=== PATIENT | male | born 1965 | race Caucasian/White ===

== ENCOUNTER 2017-12-05 22:27 | Emergency (ER) | payer SELFPAY ==
[2017-12-05] MEDS ORDERED: Acetaminophen 325 MG Tab PO ONE (23:16)
[2017-12-05] MEDS ORDERED: Ibuprofen 800 MG Tab PO ONE (23:16)
--- NOTE | 2017-12-05 23:16 | EDM.PDOC ---
ED HPI GENERAL MEDICAL PROBLEM - General Chief Complaint: Genitourinary Problem Stated Complaint: groin pain Time Seen by Provider: 12/05/17 23:04 Source of Information: Reports: Patient, RN Notes Reviewed - History of Present Illness INITIAL COMMENTS - FREE TEXT/NARRATIVE: 52-year-old gentleman with onset of left scrotal pain and swelling that started this past morning. He is not aware of any particular type of injury. 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 No Voiding symptoms. No fever or chills. Onset was fairly gradual Treatments WORK STUDY STUDENT: Reports: Other (see below) Other Treatments WORK STUDY STUDENT: none Left Pain Score (Numeric/FACES): 6 - Related Data Allergies Allergy/AdvReac Type Severity Reaction Status Date / Time lisinopril Allergy Hives Verified 12/05/17 22:43 Home Meds: Home Meds Humalog Insulin 0 unit INJECT ASDIRECTED 12/05/17 [History] Insulin Glarg,Human.Rec.Analog [Lantus] 50 unit INJECT BID 12/05/17 [History] Loratadine [Claritin] 50 mg PO DAILY 12/05/17 [History] Methocarbamol [Robaxin-750] 500 mg PO BID 12/05/17 [History] Omeprazole Magnesium [Prilosec Otc] 20 mg PO DAILY 12/05/17 [History] atorvaSTATin [Lipitor] 40 mg PO BEDTIME 12/05/17 [History] metFORMIN [Glucophage XR] 1,000 mg PO DAILY 12/05/17 [History] Ciprofloxacin HCl [Cipro] 500 mg PO Q12HR #14 tablet 12/06/17 [Rx] Past Medical History Cardiovascular History: Reports: Hypertension Gastrointestinal History: Reports: GERD Musculoskeletal History: Reports: Other (See Below) Other Musculoskeletal History: right shoulder and right hip with pins and plates Social & Family History - Tobacco Use Smoking Status *Q: Current Every Day Smoker Years of Tobacco use: 15 Packs/Tins Daily: 0.5 - Caffeine Use Caffeine Use: Reports: Tea - Recreational Drug Use Recreational Drug Use: No ED ROS GENERAL - Review of Systems Review Of Systems: See Below Constitutional: Denies: Fever, Chills HEENT: Reports: No Symptoms Respiratory: Denies: Shortness of Breath, Pleuritic Chest Pain Cardiovascular: Denies: Chest Pain GI/Abdominal: Denies: Abdominal Pain, Nausea, Vomiting : Reports: No Symptoms Musculoskeletal: Reports: No Symptoms Skin: Reports: No Symptoms Neurological: Reports: No Symptoms ED EXAM, RENAL/ - Physical Exam Exam: See Below General Appearance: Alert, No Apparent Distress Throat/Mouth: Normal Inspection Head: Atraumatic. No: Facial Swelling Neck: Supple Respiratory/Chest: No Respiratory Distress, Lungs Clear Cardiovascular: Regular Rate, Rhythm (Male) Exam: Scrotal Swelling (Mild left-sided), Scrotum Tenderness (L) Neurological: Alert, Oriented, No Motor/Sensory Deficits Skin Exam: Warm, Dry, Normal Color Course - Vital Signs Last Recorded V/S: Last Vital Signs Temp 98.9 F 12/05/17 22:53 Pulse 70 12/05/17 22:53 Resp 20 12/05/17 22:53 BP 149/89 H 12/05/17 22:53 Pulse Ox 96 12/05/17 22:53 - Orders/Labs/Meds Orders: Active Orders 24 hr Category Date Time Status Scrotum and Contents [US] Stat Exams 12/05/17 23:16 Taken UA W/MICROSCOPIC [URIN] Stat Lab 12/05/17 23:24 Ordered Labs: Laboratory Tests 12/05/17 Range/Units 23:24 Urine Color Yellow (Yellow) Urine Appearance Clear (Clear) Urine pH 7.0 (5.0-8.0) Ur Specific [place] 1.025 (1.005-1.030) Urine Protein 1+ H (Negative) Urine Glucose (UA) Negative (Negative) Urine Ketones Negative (Negative) Urine Occult Blood Trace-intact H (Negative) Urine Nitrite Negative (Negative) Urine Bilirubin Negative (Negative) Urine Urobilinogen 1.0 (0.2-1.0) Ur Leukocyte Esterase Negative (Negative) Urine RBC 0-5 (0-5) /hpf Urine WBC 0-5 (0-5) /hpf Ur Epithelial Cells 0-5 (0-5) /hpf Urine Bacteria Few (FEW) /hpf Urine Mucus Few (FEW) /hpf Meds: Medications Discontinued Medications Generic Name Dose Route Start Last Admin Trade Name Freq PRN Reason Stop Dose Admin Acetaminophen 975 mg 12/05/17 23:16 12/05/17 23:27 Tylenol PO 12/05/17 23:17 975 mg NOW ONE Administration Ibuprofen 800 mg 12/05/17 23:16 12/05/17 23:27 Motrin PO 12/05/17 23:17 800 mg ONETIME ONE Administration Levofloxacin 500 mg 12/06/17 00:38 12/06/17 00:41 Levaquin PO 12/06/17 00:39 500 mg ONETIME ONE Administration - Re-Assessments/Exams Free Text/Narrative Re-Assessment/Exam: 12/06/17 01:43 Ultrasound does show findings for epididymitis, left sided. No torsion. See report for details. Departure - Departure Time of Disposition: 00:39 Disposition: Home, Self-Care 01 Condition: Fair Clinical Impression: Epididymitis - Discharge Information Prescriptions: Ciprofloxacin HCl [Cipro] 500 mg PO Q12HR #14 tablet Instructions: Epididymitis Referrals: PCP,None [Primary Care Provider] - Forms: ED Department Discharge Additional Instructions: You've been given Levaquin 500 mg orally while here in the ED this evening. Start Cipro antibiotic 500 mg twice daily take that for the next week as prescribed, he may take Tylenol 2-3 times daily as needed for discomfort. This should gradually resolve over the next 5-7 days. A couple of days off work will be helpful as well. Follow-up clinic if not much better within 5-7 days as expected. - My Orders Last 24 Hours: My Active Orders 12/05/17 23:16 Scrotum and Contents [US] Stat 12/05/17 23:24 UA W/MICROSCOPIC [URIN] Stat - Assessment/Plan Last 24 Hours: My Active Orders 12/05/17 23:16 Scrotum and Contents [US] Stat 12/05/17 23:24 UA W/MICROSCOPIC [URIN] Stat
[2017-12-06] MEDS ORDERED: Levofloxacin 250 MG Tab PO ONE (00:38)
--- NOTE | 2017-12-06 08:54 | US ---
Testicular ultrasound: Multiple real time imaging of the testicles was obtained. Small epididymal cyst is noted on the right side measuring 6 mm. Small bilateral hydroceles are seen. Testicles show no intratesticular abnormality. Both arterial and venous blood flow are seen within the testicles. Left epididymis is heterogeneous showing increased blood flow most likely due to epididymitis. Measurements: Right testicle: 5.1 x 2.7 x 3.9 cm Left testicle: 3.6 x 2.5 x 3.2 cm Impression: 1. Heterogeneous left epididymis showing increased vascularity compatible with epididymitis. 2. Other incidental findings as noted above. Diagnostic code #3 I agree with preliminary report from [facility], finalized at 12/06/17, 1:25 AM Central Time
== END 2017-12-06 00:53 | disposition home or self-care (01) ==
LOC: JD.ED 22:27
DX: N45.1 Epididymitis (principal); F17.210 Nicotine dependence, cigarettes, uncomplicated; I10 Essential (primary) hypertension; K21.9 Gastro-esophageal reflux disease without esophagitis; Z79.899 Other long term (current) drug therapy
CPT/HCPCS: 76870; 81001; 93975; 99284; A9270; 99283

== ENCOUNTER 2018-01-24 21:28 | Emergency (ER) | payer SELFPAY ==
[2018-01-24] MEDS ORDERED: Acetaminophen/HYDROcodone 325-5 MG Tab PO ONE (22:26)
[2018-01-24] MEDS ORDERED: Acetaminophen/HYDROcodone 325-5 MG Tab ONE (22:50)
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
== END 2018-01-24 23:53 | disposition home or self-care (01) ==
LOC: JD.ED 21:28
DX: T23.242A Burn of second degree of multiple left fingers (nail), including thumb, initial encounter (principal); T31.0 Burns involving less than 10% of body surface; F17.210 Nicotine dependence, cigarettes, uncomplicated; I10 Essential (primary) hypertension; E11.9 Type 2 diabetes mellitus without complications; Z88.8 Allergy status to other drugs, medicaments and biological substances
CPT/HCPCS: 16020; 99284; A9270